=== PATIENT | female | born 1950 | race Caucasian/White ===

== ENCOUNTER 2025-06-09 08:08 | Emergency (ER) | payer OTHER, SELFPAY ==
--- NOTE | ~2025-06-09 | CT_ITS ---
CLINICAL HISTORY: R sided swelling --- Additional Notes or Special Instructions: ? periapical abscess right upper CT maxillofacial with IV contrast. COMPARISON: None provided. FINDINGS: Subcutaneous soft tissue edema overlying the right aspect of the mid to lower face. Small abscess present along the soft tissues overlying the root of the right maxillary canine measuring approximately 0.4 x 0.5 x 0.5 cm (series 2, image 117). The root of the right maxillary canine extends through the overlying cortex with likely communication between the root in the overlying soft tissues (seen best on sagittal series 9, image 136). Normal submandibular and parotid glands. Orbital soft tissues are unremarkable. Mucosal thickening present within the right maxillary sinus. Mastoid air cells are clear. Parapharyngeal fat pads are preserved. No palatine tonsillar hypertrophy. No peritonsillar edema. Normal epiglottis. No jugular chain or submandibular lymphadenopathy. No acute fracture or suspicious bone lesion. Degenerative changes at C3-4. Right occipital/temporal infarct. IMPRESSION: 1. Small abscess present within soft tissues along the root of the right maxillary canine measuring 0.4 x 0.5 x 0.5 cm. The root of the right maxillary canine extends through the cortex of the maxillary bone. There is diffuse overlying soft tissue edema consistent with cellulitis. 2. Inflammatory changes of the right maxillary sinus. This document has been electronically signed by: Norman Garcia MD on 06/09/2025 12:47:16
[2025-06-09 08:11] VITALS: BP 141/96; PULSE 111; RESP 18; TEMP 36.8; O2SAT 99; BMI 25.4
--- OUTSIDE RECORDS SUMMARY | 2025-06-09 08:35 | XMS_ITS | Patient Health Record ---
Author Organization [facility] Address [address] [place] [address] Care Team Providers Care Travel Money Advisor Name Role Phone Candy Olson MD Primary Care Provider Unavailab nany Arpita Mccain Unavailable [phone] Reason For Referral No Information Medications Medication SIG (Take, Route, Frequency, Duration) Notes Start Date End Date Status Simvastatin 20 MG 1 tablet in the even ing Orally Once a day Active Lisinopril 20 MG 1 tablet Orally Once a day Active oxyBUTYnin Chloride 5 MG 1 tablet Orally Twice a day Active Lorazepam 1 tab Oral Active Problems No Known Problems Plan Of Treatment No Information Insurance Providers Payer Name Payer Address Payer Phone Subscriber Number Group Number Insured Name Patient Relationship to Insured Coverage Start Date Coverage End Date [facility] [id number] [place] [phone] [id number] Chente Flynn Spouse - patient is the spouse of the insured Medical (General) History Medical History History ICD Code Cholesterol Diverticulosis High blood pressure Measles Chicken pox
--- NOTE | 2025-06-09 09:09 | ED.GENADULT ---
HPI - General Adult General Chief complaint: General Medical Stated complaint: facial swelling Time Seen by Provider: 06/09/25 08:49 Source: patient, RN notes reviewed and old records reviewed Mode of arrival: ambulatory Limitations: no limitations History of Present Illness ED Provider: Bobby BARRON narrative: Patient is a 75-year-old female presenting to the emergency department with complaint of right-sided facial swelling which she noted upon wakening this morning. She reports the area is nontender. She does state that she use to have partials for her upper jaw but lost them and has not replace them. She does complain of some tenderness in the area of a fractured tooth to right upper jaw. Denies any difficulty swallowing or opening and closing her jaw. Denies fevers. Denies any discharge or drainage. MD complaint: Facial swelling Onset (ago): hour(s) Related Data Previous Rx's ?Medication ?Instructions ?Recorded clindamycin HCl 300 mg capsule 600 mg (2 x 300 mg) PO TID 7 days 06/09/25 (Cleocin HCl) #42 caps Allergies Allergy/AdvReac Type Severity Reaction Status Date / Time No Known Allergies Allergy Verified 06/09/25 08:14 Review of Systems Review of Systems: as per hpi Yes all other systems are reviewed and are negative Constitutional: Constitutional: Reports as per HPI [facility] Social History Social History Advance Directives: No Advance Directives Information Provided: Yes Do you have a plan to hurt others: No Plan Physical Exam ED Vital Signs: Vital Signs - 24 hr 06/09/25 08:11 06/09/25 11:44 Temperature 98.3 F 97.2 F Pulse Rate 111 H 90 Respiratory Rate 18 14 Blood Pressure 141/96 H 145/86 H Pulse Oximetry 99 99 Oxygen Delivery Method Room Air Room Air BMI result Body Mass Index 25.4 Vital signs have been reviewed and appear to be correct. Blood pressure normal. Heart rate mildly tachycardic. Respiratory rate normal. Temperature normal. Oxygen saturation normal. Const General: cooperative, healthy appearing and no acute distress Orientation/consciousness: oriented to person, oriented to place, oriented to time and patient oriented x3 Limitations: no limitations HENMT Head: Yes normocephalic and Yes atraumatic Ears: external ears normal, TM's normal bilaterally and EAC's normal General nose exam: Normal external nose present and Normal nasal mucous membranes and turbinates present Face and sinus: Yes face symmetric, Yes edema (right sided swelling) and Yes sinus tenderness (right maxillary ) Face images:  1. swelling Mouth: oropharynx normal and moist mucous membranes Teeth and gingiva: other Teeth image:  1. fractured tooth with erythematous surrounding gingiva and tenderness, no fluctuance or drainage Throat: Yes uvula midline Eyes Pupils: Equal, round and reactive pupils present Neck Neck: Yes normal visual inspection and Yes supple Resp Effort & Inspection: normal respiratory effort and able to speak in complete sentences Auscultation: clear to auscultation bilaterally Cardio Rate: regular rate Rhythm: regular rhythm Heart sounds: S1 normal heart sound present and S2 normal heart sound present GI Palpation (GI): Soft to palpation and nontender Auscultation: normoactive bowel sounds General: Yes no CVA tenderness Back/Spine/Pelvis Back: no CVA tenderness Skin General skin exam: elasticity normal and turgor normal Neuro General: oriented to person, oriented to place, oriented to time, patient oriented x3, moves all extremities, no focal motor deficits and CN's II-XI intact bilaterally Cranial nerves: Yes Equal, round and reactive pupils present Cognition (Neuro): normal cognition Extrem General: Yes full ROM, Yes no pedal edema and Yes no calf tenderness Psych Mental Status: mental status grossly normal Affect: normal affect Thought process: Normal thought process present Medications Administered Discontinued Medications Generic Name Dose Route Start Last Admin Trade Name Freq PRN Reason Stop Dose Admin Iohexol 100 ml 06/09/25 11:05 06/09/25 11:05 Iohexol 350 Mg/Ml 100 Ml Infus..Btl IV 06/09/25 11:06 85 ml ONCE ONE Administration Medical Decision Making Medical Decision Making [facility] Narrative: Patient is a 75-year-old female presenting to the emergency department with complaint of right-sided facial swelling which she noted upon wakening this morning. On exam patient is awake, A+Ox3, VS WNL, afebrile, normal neurological exam without focal deficits, physical exam findings as above. Given reported symptoms and physical exam findings, initial differential includes but is not limited to periapical abscess, cellulitis. Labs within normal limits. CT face notable for small abscess along the root of the right maxillary canine with diffuse soft tissue edema. My interpretation is in agreement with the radiologist's interpretation. Case discussed with attending, Dr. Dee, who also evaluated patient and does not feel abscess is able to be drained at the bedside. He recommends one time IV dose of 900mg clindamycin, then discharge home on 600mg TID and follow up with dentist. return precautions discussed with patient at bedside. Patient verbalized understanding of and agreement with plan. Also recommended patient take probiotic while on the clindamycin. Differential Diagnosis Differential Diagnoses: The differential diagnosis associated with the presentation includes As per [facility] Admission/Observation Consideration of admission/observation: Escalation of care including admission/observation considered Patient would have been admitted to the hospital and transferred to appropriate facility had their clinical presentation warranted hospital admission. Lab Data [facility] Lab Attestation statement: I reviewed the patient's lab results. as per [facility] [place] 06/09/25 09:39 06/09/25 09:43 Labs: Lab Results 06/09/25 06/09/25 Range/Units 09:39 09:43 WBC 9.5 (4.8-10.8) X10*3/uL RBC 4.92 (4.20-5.50) X10*6/uL Hgb 15.3 (12.0-16.0) g/dl Hct 44.9 (37.0-47.0) % MCV 91.3 (80.0-98.0) fL MCH 31.1 (27.0-33.0) pg MCHC 34.1 (31.0-35.0) g/dl RDW 12.3 (11.0-16.0) % Plt Count 237 (160-400) X10*3/uL MPV 9.8 (9.4-12.3) fL Immature Gran % (Auto) 0.4 (0.0-0.4) % Neut % (Auto) 76.1 H (45-73) % Lymph % (Auto) 13.9 L (20-40) % [place] % (Auto) 8.6 (2-11) % Eos % (Auto) 0.5 (0-4) % Baso % (Auto) 0.5 (0-2) % Lymph # (Auto) 1.3 (1.2-4.9) X10*3/uL [place] # (Auto) 0.8 (0.1-1.2) X10*3/uL Eos # (Auto) 0.1 (0.0-0.4) X10*3/uL Baso # (Auto) 0.1 (0.0-0.2) X10*3/uL Abs Immat Gran (auto) 0.04 H (0.00-0.03) X10*3/uL Absolute Neuts (auto) 7.3 (2.0-8.3) x10*3/uL Absolute Nucleated RBC 0.000 (0.0-0.012) X10*3/uL Nucleated RBC % (auto) 0.0 (0.0-0.2) /100WBC Sodium 141 (135-145) mmol/L Potassium 4.8 (3.3-5.1) mmol/L Chloride 107 (96-108) mmol/L Carbon Dioxide 26 (22-29) mmol/L Anion Gap 13 (12-20) BUN 14 (9-16) mg/dL Creatinine 1.04 (0.5-1.4) mg/dL Estim Creat Clear Calc 44.7 Estimated GFR 52 Random Glucose 188 H (60-115) mg/dL Calcium 9.6 (8.4-10.2) mg/dL Total Bilirubin 1.1 H (0.0-1.0) mg/dL AST 22 (5-31) U/L ALT 14 (0-31) U/L Alkaline Phosphatase 110 (39-117) U/L Total Protein 7.0 (6.5-8.0) g/dL Albumin 4.4 (3.5-5.0) g/dL Independent Interpretation I performed an independent interpretation of an: CT Scan Interpretation: CT face notable for small abscess along the root of the right maxillary canine with diffuse soft tissue edema Radiology Impression Discussion of test interpretation with radiology: I have reviewed the radiologist's reading. Radiologist Impression: IMPRESSION: 1. Small abscess present within soft tissues along the root of the right maxillary canine measuring 0.4 x 0.5 x 0.5 cm. The root of the right maxillary canine extends through the cortex of the maxillary bone. There is diffuse overlying soft tissue edema consistent with cellulitis. 2. Inflammatory changes of the right maxillary sinus. External Record Review External record reviewed: Inpatient record, Office record and Outpatient record Prescription Management I considered prescription management with: Antibiotic Discharge Plan Discharge Clinical Impression: Periapical abscess with facial involvement Patient Disposition: Home, Self-Care Instructions: Clindamycin (By mouth), Dental Abscess (ED) Additional Instructions: You were evaluated in the emergency department today for right-sided facial swelling. Your CT showed this is due to a dental abscess. You were given the 1st dose of antibiotics through an IV in the emergency department today. You are being discharged home on a course of oral antibiotics. It is important that you complete the full course of antibiotics as prescribed even if your symptoms improve. It is also very important that you schedule follow up appointment with your dentist. Return to the emergency department if you develop increased swelling, fever 100.4? F or greater, persistent vomiting/RSV unable to tolerate oral antibiotics, or any other new or concerning symptoms. We also recommend that while on these antibiotics you take a probiotic, specifically saccharomyces boulardii. Take this a few hours apart from the antibiotics. Prescriptions: New clindamycin HCl [Cleocin HCl] 300 mg capsule 600 mg PO TID 7 Days Qty: 42 0RF Print Language: Portuguese
[2025-06-09 09:47] LABS: MANUAL DIFF FLAG NO
[2025-06-09 09:48] LABS: Hematocrit 44.9 % (37.0-47.0); Hemoglobin 15.3 g/dl (12.0-16.0); Imm Gran Abs Auto 0.04 X10*3/uL (0.00-0.03); Imm Gran Pct Auto 0.4 % (0.0-0.4); Lymphocytes Absolute Auto 1.3 X10*3/uL (1.2-4.9); Mean Corpuscular HGB Conc 34.1 g/dl (31.0-35.0); Mean Corpuscular Hemoglobin 31.1 pg (27.0-33.0); Mean Corpuscular Volume 91.3 fL (80.0-98.0); NRBC Abs Auto 0.000 X10*3/uL (0.0-0.012); NRBC Pct Auto 0.0 /100WBC (0.0-0.2); Platelet Count 237 X10*3/uL (160-400); Red Blood Count 4.92 X10*6/uL (4.20-5.50); White Blood Count 9.5 X10*3/uL (4.8-10.8)
[2025-06-09 10:15] LABS: Alanine Aminotransferase 14 U/L (0-31); Albumin Level 4.4 g/dL (3.5-5.0); Alkaline Phosphatase 110 U/L (39-117); Anion Gap 13 (12-20); Aspartate Amino Transferase 22 U/L (5-31); Blood Urea Nitrogen 14 mg/dL (9-16); Calcium 9.6 mg/dL (8.4-10.2); Carbon Dioxide 26 mmol/L (22-29); Chloride 107 mmol/L (96-108); Creatinine Clr Calc Pharmacy 44.7; Estimated Glomerular Filt Rate 52; Potassium 4.8 mmol/L (3.3-5.1); Sodium 141 mmol/L (135-145); Total Protein 7.0 g/dL (6.5-8.0)
[2025-06-09] MEDS: iohexoL 350 MG/ML 100 ML INFUS..BTL IV (11:05)
[2025-06-09 11:44] VITALS: BP 145/86; PULSE 90; RESP 14; TEMP 36.2; O2SAT 99
[2025-06-09 14:20] VITALS: BP 166/101; PULSE 84; RESP 14; TEMP 36.3; O2SAT 99
[2025-06-09 14:47] VITALS: BP 134/86; PULSE 82
[2025-06-09] MEDS: Metoprolol Succinate ER 25 MG TAB.ER.24H PO (14:47)
[2025-06-09 14:48] VITALS: BP 134/86
[2025-06-09 16:08] VITALS: BP 134/86; PULSE 82; RESP 16; TEMP 36.4; O2SAT 99
== END 2025-06-09 16:09 | disposition home or self-care (01) ==
PROVIDERS: Registered Nurse Emergency; Emergency Provider Emergency Medicine; PCP Nurse Practitioner Family
DX: K04.6 Periapical abscess with sinus (principal); K03.81 Cracked tooth; R60.0 Localized edema
CPT/HCPCS: 36415; 70487; 80053; 85025; 96365; 99284; 99285; J0736; Q9967

== ENCOUNTER → 2025-06-09 09:16 | Outpatient (BNV) | payer OTHER, SELFPAY | PROVIDERS: Emergency Provider Emergency Medicine; PCP Nurse Practitioner Family; Visit Provider Radiology Diagnostic Radiology | DX: M27.2 Inflammatory conditions of jaws (principal) | CPT/HCPCS: 70487 ==